=== PATIENT | male | born 1975 | race Caucasian/White ===

== ENCOUNTER → 2016-12-08 | Outpatient (CLI) | payer SELFPAY | LOC: LAB.O 10:50 | PROVIDERS: ATTEND Nurse Practitioner Family | DX: R36.0 Urethral discharge without blood (principal) ==

== ENCOUNTER → 2017-03-03 | Outpatient (CLI) | payer SELFPAY ==
--- NOTE | 2017-03-04 10:25 | MRI ---
Study: MRI of the Right Elbow. Indication: RT ELBOW PAIN Technique: Multiplanar, multi sequence MRI of the right elbow was obtained without intravenous contrast. Comparison: None. 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 A small 8 mm ganglion is noted along the posterior margin of the tendon origin. Prior sprain and thickening radial collateral ligament. Common flexor tendon origin and ulnar collateral ligament intact. Biceps, brachialis, and triceps tendon insertions intact. No acute fracture. Ulnar nerve intact. Mild osteoarthritis of both elbow compartments. Physiologic volume joint fluid. 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 Associated small ganglion noted superficial to the posterior margin of the tendon. Prior sprain radial collateral ligament Mild osteoarthritis of the elbow. Electronically signed by: Theodore Pablo MD 03/04/2017 10:24 AM CDT
== END | disposition home or self-care (01) ==
LOC: MRI 09:12
PROVIDERS: ATTEND Physician Assistant
DX: M25.521 Pain in right elbow (principal); M75.21 Bicipital tendinitis, right shoulder

== ENCOUNTER → 2017-03-13 | Outpatient (CLI) | payer SELFPAY ==
--- NOTE | 2017-03-13 10:17 | RAD ---
EXAM DESCRIPTION: Elbow, right 3 Views CLINICAL HISTORY: 41 years, Male, PAIN IN RIGHT ELBOW COMPARISON: FINDINGS: Three views do not demonstrate fracture or dislocation no visualized effusion. Mild narrowing medially with spurring. Soft tissue swelling posterior to the elbow. IMPRESSION: No fracture dislocation or visualized joint effusion Electronically signed by: Noe Melendez MD 03/13/2017 10:15 AM CDT
== END | disposition home or self-care (01) ==
LOC: RAD 08:00
PROVIDERS: ATTEND Orthopaedic Surgery
DX: M25.521 Pain in right elbow (principal)

== ENCOUNTER → 2017-08-07 | Outpatient (CLI) | payer OTHER | LOC: GMA 14:40 | PROVIDERS: ATTEND Nurse Practitioner Acute Care | DX: E03.9 Hypothyroidism, unspecified (principal); D51.9 Vitamin B12 deficiency anemia, unspecified; E29.1 Testicular hypofunction ==

== ENCOUNTER → 2017-09-29 | Outpatient (CLI) | payer OTHER | LOC: GMAJS 08:00 | PROVIDERS: ATTEND Family Medicine | DX: Z79.899 Other long term (current) drug therapy (principal) ==

== ENCOUNTER → 2017-09-29 | Outpatient (CLI) | payer OTHER | LOC: LAB.O 11:07 | PROVIDERS: ATTEND Physician Assistant | DX: R71.8 Other abnormality of red blood cells (principal) ==

== ENCOUNTER → 2017-12-27 | Outpatient (CLI) | payer OTHER | LOC: GMAM 11:22 | PROVIDERS: ATTEND Family Medicine | DX: R53.82 Chronic fatigue, unspecified (principal) ==

== ENCOUNTER → 2018-06-15 | Outpatient (CLI) | payer OTHER | LOC: GMAJS 12:39 | PROVIDERS: ATTEND Physician Assistant | DX: R53.82 Chronic fatigue, unspecified (principal) ==

== ENCOUNTER → 2018-10-19 | Outpatient (CLI) | payer OTHER | LOC: GMAM 12:37 | PROVIDERS: ATTEND Family Medicine | DX: E53.8 Deficiency of other specified B group vitamins (principal); E78.2 Mixed hyperlipidemia; E03.9 Hypothyroidism, unspecified; E29.1 Testicular hypofunction; E55.9 Vitamin D deficiency, unspecified; Z12.5 Encounter for screening for malignant neoplasm of prostate ==

== ENCOUNTER → 2018-10-22 | Outpatient (CLI) | payer OTHER | LOC: LAB.O 12:24 | PROVIDERS: ATTEND Family Medicine | DX: D75.1 Secondary polycythemia (principal) ==

== ENCOUNTER → 2019-11-11 | Outpatient (CLI) | payer OTHER | LOC: GMAM 15:14 | PROVIDERS: ATTEND Family Medicine | DX: E03.9 Hypothyroidism, unspecified (principal); E78.2 Mixed hyperlipidemia ==

== ENCOUNTER → 2019-11-14 | Outpatient (CLI) | payer OTHER ==
--- NOTE | 2019-11-15 12:58 | US ---
US THYROID CLINICAL STATEMENT:44 years Male ABNORMAL RESULTS OF THYROID FUNCTION STUDIES. COMPARISON: None TECHNIQUE: Transcutaneous scanning, grayscale and Doppler modes. FINDINGS: Size right thyroid lobe: 3.8 x 1.8 x 1.3 cm Size left thyroid lobe: 3.8 x 1.4 x 1.1 cm Size isthmus: 0.39 cm Estimated total number of nodules greater than or equal to 1 cm: 2. No fluid collection or distinct cyst. No large calcifications. No overlying skin changes. Nodule 1: Size: 1.3 x 1.1 x 1.1 cm Location: Right Mid Composition: solid or almost completely solid: 2 points Echogenicity: hyperechoic: 1 point Shape: wider than tall: 0 points Margins: smooth: 0 points Echogenic foci: none: 0 points ACR Total Points: 3; ACR TI-RADS risk category: TR3 - mildly suspicious nodule. Nodule 2: Size: 1.3 x 1.1 x 1.0 cm Location: Right Mid Composition: solid or almost completely solid: 2 points Echogenicity: hypoechoic: 2 points Shape: wider than tall: 0 points Margins: ill-defined: 0 points Echogenic foci: none: 0 points ACR Total Points: 4; ACR TI-RADS risk category: TR4 - moderately suspicious nodule. Soft tissue around the thyroid gland is unremarkable. IMPRESSION: 1. Nodule 1: ACR TI-RADS 2017 Category TR3. Recommend: No further follow-up.. Recommendations based upon [facility] [employer] [facility] recommendations and ACR TI-RADS 2017 guidelines. Please see below*. 2. Nodule 2: ACR TI-RADS 2017 Category TR4. Recommend: Follow-up ultrasound in 1 year. 3. Negative findings in the soft tissues. *ACR TI-RADS 2017 Recommendations for imaging follow-up of nodules: TR1: No FNA or follow up TR2: No FNA or follow up TR3: FNA if >/= 2.5 cm, follow up if 1.5 - 2.4 cm in 1, 3, and 5 years TR4: FNA if >/= 1.5 cm, follow up if 1.0 - 1.4 cm in 1, 2, 3, and 5 years TR5: FNA if >/= 1.0 cm, follow up if 0.5 - 0.9 cm every year for 5 years ACR TI-RADS recommends that no more than two nodules with the highest ACR TI-RADS total point should be biopsied and no more than four nodules should be followed. These recommendations do not apply to patients with increased risk for thyroid cancer or patients with symptomatic thyroid disease. Electronically signed by: Niko Arora MD 11/15/2019 12:57 PM CDT
== END ==
LOC: LAB.O 15:42
PROVIDERS: ATTEND Family Medicine
DX: E04.2 Nontoxic multinodular goiter (principal)

== ENCOUNTER → 2020-06-02 | Outpatient (CLI) | payer SELFPAY | LOC: GMAM 14:55 | PROVIDERS: ATTEND Family Medicine | DX: E03.9 Hypothyroidism, unspecified (principal); R94.5 Abnormal results of liver function studies; E78.2 Mixed hyperlipidemia; E29.1 Testicular hypofunction ==